=== PATIENT | male | born 1945 | race Two or more races ===

== ENCOUNTER 2017-11-08 05:15 | Day surgery (SDC) | payer OTHER ==
[~2017-11-08 05:15] MED LIST: DIOVAN HCT 160-1 TAB
[2017-11-08] MEDS ORDERED: ZANTAC300 MG PO (14:03)
[2017-11-08] MEDS ORDERED: ULTRACET PO (14:03)
== END 2017-11-08 18:12 | disposition home or self-care (01) ==
LOC: CIR.AMB 05:15
DX: K40.90 Unilateral inguinal hernia, without obstruction or gangrene, not specified as recurrent (principal)